=== PATIENT | male | born 1985 | race African-American/Black ===

== ENCOUNTER 2023-11-11 02:13 | Emergency (ER) | payer MEDICAID, OTHER ==
[~2023-11-11] VITALS: Ht 177.8 cm; Wt 90.0 kg
[2023-11-11 02:16] VITALS: O2SAT 98
[2023-11-11] MEDS: LEVETIRACETAM 1000MG PREMIX 100 ML IV ONE (04:23)
[2023-11-11] MEDS ORDERED: LEVE750T4 MT (04:54)
[2023-11-11 05:00] VITALS: BP 114/85; PULSE 97; RESP 15; TEMP 98.4
== END 2023-11-11 06:04 ==
LOC: ER 03:07
DX: R56.9 Unspecified convulsions (principal)
CPT/HCPCS: 99284; 96365; J1953